=== PATIENT | male | born 1995 | race Two or more races ===

== ENCOUNTER → 2017-10-07 | Outpatient (CLI) | payer OTHER | LOC: M LRY 10:22 | DX: S69.91XA Unspecified injury of right wrist, hand and finger(s), initial encounter (principal) | CPT/HCPCS: 73130; G0463 ==

== ENCOUNTER 2018-03-24 13:16 | Emergency (ER) | payer OTHER ==
[2018-03-24] MEDS: LIDOCAINE 1% MDV 20ML VIAL SC (14:30)
[2018-03-24] MEDS: ADACEL/BOOSTRIX VACCINE (DIPHTH/PERTUSS/ACELL/TETANUS)0.5ML SYR (90715) IM (14:59)
== END 2018-03-24 15:32 | disposition home or self-care (01) ==
LOC: M ED 13:16
DX: S71.112A Laceration without foreign body, left thigh, initial encounter (principal); W26.0XXA Contact with knife, initial encounter; Y92.89 Other specified places as the place of occurrence of the external cause
CPT/HCPCS: 90715

== ENCOUNTER → 2018-04-03 | Outpatient (REF) | payer OTHER ==
[2018-04-03 22:02] LABS: CHLAMYDIA DNA AMPLIFICATION NEGATIVE (NEGATIVE); GC DNA AMPLIFICATION NEGATIVE (NEGATIVE)
== END ==
LOC: M SFHCLERA 17:13
DX: Z20.2 Contact with and (suspected) exposure to infections with a predominantly sexual mode of transmission (principal)